=== PATIENT | female | born 1960 | race Caucasian/White ===

== ENCOUNTER → 2022-05-03 | Outpatient (CLI) | payer BC ==
--- NOTE | 2022-05-03 11:19 | XR ---
EXAMINATION TYPE: XR foot limited LT DATE OF EXAM: 05/03/2022 10:17 AM INDICATION: Patient age:Female; 61 years old; Reason for study: [id number]; COMPARISON: None TECHNIQUE: The left foot was examined in the AP, and lateral projections. FINDINGS: No evidence of any acute osseous pathology. No evidence of soft tissue swelling. Joints are preserve d. Calcaneal plantar spurring is present. IMPRESSION: No evidence of acute fracture.
== END | disposition home or self-care (01) ==
LOC: RADXRMAIN 10:04
PROVIDERS: ATTEND Family Medicine
DX: M79.672 Pain in left foot (principal)

== ENCOUNTER → 2022-05-03 | Outpatient (CLI) | payer BC ==
[2022-05-03 14:04] LABS: Basophils # (A) 0.06 X 10*3/uL (0.00-0.10); Basophils % (A) 1.1 %; Eosinophils % (A) 3.8 %; HCT 44.3 % (37.2-46.3); HGB 14.4 g/dL (12.0-15.0); Immature Grans, Automated 0.2 %; Lymphocytes # (A) 1.97 X 10*3/uL (0.90-5.00); Lymphocytes % (A) 37.7 %; MCH 29.3 pg (27.0-32.0); MCHC 32.5 g/dL (32.0-37.0); MCV 90.2 fL (80.0-97.0); Mean Platelet Volume 10.8 fL (9.5-12.2); Monocytes # (A) 0.37 X 10*3/uL (0.20-1.00); Monocytes % (A) 7.1 %; NRBC Per 100 WBC 0 /100 WBCS (0.0-0.0); Neutrophils # (A) 2.62 X 10*3/uL (1.80-7.70); Neutrophils % (A) 50.1 %; Platelet Count 247 X 10*3/uL (140-440); RBC 4.91 X 10*6/uL (4.10-5.20); RDW 14.4 % (11.5-14.5); WBC 5.23 X 10*3/uL (4.50-10.00)
[2022-05-03 14:29] LABS: ALT 20 U/L (8-44); AST 16 U/L (13-35); African American GFR (CKD) 114.7 (60.0-200.0); Albumin 4.8 g/dL (3.8-4.9); Alkaline Phosphatase 71 U/L (41-126); BUN/Creat Ratio 18.05 Ratio (12.00-20.00); Blood Urea Nitrogen 11.1 mg/dL (9.0-27.0); Calcium 10.3 mg/dL (8.7-10.3); Carbon Dioxide 25.2 mmol/L (20.0-27.5); Chloride 107 mmol/L (96-109); Chol/HDL Ratio 5.47 Ratio; Globulin 2.5 g/dL (1.6-3.3); Glucose 82 mg/dL (70-110); LDL Cholesterol,Calculated 160.3 mg/dL (0.0-131.0); Potassium 4.5 mmol/L (3.5-5.5); Sodium 142 mmol/L (135-145); Total Protein 7.3 g/dL (6.2-8.2); Uric Acid 4.7 mg/dL (2.9-7.7); VLDL Calculation 15.38 mg/dL (5.00-40.00)
== END | disposition home or self-care (01) ==
LOC: LABWHC1 09:19
PROVIDERS: ATTEND Family Medicine
DX: Z00.00 Encounter for general adult medical examination without abnormal findings (principal); M25.572 Pain in left ankle and joints of left foot; Z68.23 Body mass index [BMI] 23.0-23.9, adult
CPT/HCPCS: 36415; 80053; 80061; 84439; 84443; 84550; 85025

== ENCOUNTER → 2022-05-14 | Outpatient (CLI) | payer BC ==
--- NOTE | 2022-05-15 19:30 | MM ---
Reason for Exam: Screening (asymptomatic). Last mammogram was performed 6 year(s) and 8 month(s) ago. Patient History: Menarche at age 19. First Full-Term at age 32. Late child-bearing (after 30). Postmenopausal. 2000, Cyst Aspiration on the Left side. Mother had breast cancer, age 52. Risk Values: Nany 5 year model risk: 2.6%. NCI Lifetime model risk: 13.4%. Prior Study Comparison: 02/02/2012 Bilateral MG screening mammo w CAD - 2, [facility]. 03/16/2012 Screening Mammogram, [facility]. 09/20/2015 Bilateral Screening Mammogram, [facility]. Tissue Density: The breast tissue is heterogeneously dense. This may lower the sensitivity of mammography. Findings: Analyzed By CAD. There is no suspicious group of microcalcifications or new suspicious mass in either breast. Overall Assessment: Negative, BI-RAD 1 Management: Screening Mammogram of both breasts in 1 year. 1. Patient should continue monthly self breast exams. 2. A clinical breast exam by your physician is recommended on an annual basis. 3. This exam should not preclude additional follow-up of suspicious palpable abnormalities. Electronically signed and approved by: Olga Dodd M.D. Radiologist
== END | disposition home or self-care (01) ==
LOC: RADMAMWWP 09:36
PROVIDERS: ATTEND Family Medicine
DX: Z12.31 Encounter for screening mammogram for malignant neoplasm of breast (principal); Z78.0 Asymptomatic menopausal state; Z80.3 Family history of malignant neoplasm of breast
CPT/HCPCS: 77063; 77067

== ENCOUNTER → 2023-05-19 | Outpatient (CLI) | payer BC ==
--- NOTE | 2023-05-20 08:15 | MM ---
Reason for Exam: Screening (asymptomatic). Last screening mammogram was performed 12 month(s) ago. Patient History: Menarche at age 19. First Full-Term at age 32. Late child-bearing (after 30). Postmenopausal. Patient used Hormonal Contraceptives for 2 years. 2000, Cyst Aspiration on the Left side. Mother had breast cancer, age 52. Risk Values: Nany 5 year model risk: 2.6%. NCI Lifetime model risk: 13.1%. Prior Study Comparison: 03/16/2012 Screening Mammogram, [facility]. 09/20/2015 Bilateral Screening Mammogram, [facility]. 05/14/2022 Bilateral MG 3D screening mammo w/cad, [facility]. Tissue Density: The breast tissue is heterogeneously dense. This may lower the sensitivity of mammography. Findings: Analyzed By CAD. There is no suspicious group of microcalcifications or new suspicious mass in either breast. Overall Assessment: Negative, BI-RAD 1 Management: Screening Mammogram of both breasts in 1 year. A clinical breast exam by your physician is recommended on an annual basis and results should be correlated with mammographic findings. Note on Nany scores and lifetime risk: 1. A Nany score greater than 3% is considered moderate risk. If this is the case, consider specialist referral to assess eligibility for a risk reducing agent. If overall lifetime risk for the development of breast cancer is 20% or higher, the patient may qualify for future screening with alternating mammogram and breast MRI. Electronically signed and approved by: Ralf Jules D.O.
== END | disposition home or self-care (01) ==
LOC: RADMAMWWP 11:45
PROVIDERS: ATTEND Family Medicine
DX: Z12.31 Encounter for screening mammogram for malignant neoplasm of breast (principal); Z80.3 Family history of malignant neoplasm of breast; Z78.0 Asymptomatic menopausal state
CPT/HCPCS: 77063; 77067

== ENCOUNTER → 2023-06-27 | Outpatient (CLI) | payer BC ==
[2023-06-27 21:47] LABS: T4, Free (Free Thyroxine) 1.5 ng/dL (0.80-1.80)
== END | disposition home or self-care (01) ==
LOC: LABWHC1 12:47
PROVIDERS: ATTEND Otolaryngology
DX: E04.1 Nontoxic single thyroid nodule (principal)
CPT/HCPCS: 36415; 84439; 84443; 86376

== ENCOUNTER → 2023-08-19 | Outpatient (CLI) | payer BC ==
--- NOTE | 2023-08-19 10:39 | CT ---
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 TECHNIQUE: Contiguous axial scanning of the soft tissues of the neck performed without and with IV Co ntrast, patient injected with 100ml mL of Isovue 300. Coronal and sagittal reconstructions performed. CT DLP: 697.8 mGycm Automated exposure control for dose reduction was used. FINDINGS: Multiple nodules of the thyroid gland, largest measuring 1.5 cm right thyroid lobe and 9 mm thyroid i sthmus. Please refer to recent thyroid ultrasound for complete details and recommendations. Visualized intracranial structures, orbits and globes, paranasal sinuses, mastoid air cells appear cl ear. Nasopharynx is clear. Multiple punctate calcifications in the region of the palatine tonsils which are moderately hypertrop hied. Calcifications measuring up to 4 mm suggest sequela of prior infection. Mild bilateral inguinal tonsillar hypertrophy. Oropharynx otherwise clear. Epiglottis and prevertebral soft tissue satisfactory. Glottic and subglottic structures as well as the tracheal column and visualized upper lungs are clear . The thyroid glands are satisfactory. Parotid glands are mildly atrophic. A few scattered prominent lymph nodes measuring up to 1.0 cm in the upper neck. No cervical lymphaden opathy by size criteria. Bones: Scattered mild degenerative disc disease mid to lower cervical spine. IMPRESSION: 1. A FEW NODULES IN THE THYROID GLAND. PLEASE REFER TO THE RECENT 06/27/2023 THYROID ULTRASOUND REPORT FOR FURTHER DETAILS AND RECOMMENDATION. 2. MODERATE BILATERAL PALATINE TONSILLAR HYPERTROPHY WITH PUNCTATE CALCIFICATIONS MEASURING UP TO 4 M M SUGGESTING SEQUELA OF PRIOR INFECTION. 3. MILDLY ATROPHIC PAROTID GLANDS. 4. OTHERWISE, NO SPECIFIC ABNORMALITY SEEN.
== END | disposition home or self-care (01) ==
LOC: RADCTMAIN 08:18
PROVIDERS: ATTEND Otolaryngology
DX: Q89.2 Congenital malformations of other endocrine glands (principal); E04.2 Nontoxic multinodular goiter; J35.1 Hypertrophy of tonsils; K11.0 Atrophy of salivary gland
CPT/HCPCS: 70492; Q9967

== ENCOUNTER → 2023-09-11 | Outpatient (CLI) | payer BC ==
--- NOTE | 2023-09-11 08:17 | MM ---
Reason for Exam: Clinical finding. Last screening mammogram was performed 4 month(s) ago. Patient History: Menarche at age 19. First Full-Term at age 32. Late child-bearing (after 30). Postmenopausal. Patient used Hormonal Contraceptives for 2 years. 1999, Cyst Aspiration on the Left side. Mother had breast cancer, age 52. Risk Values: Nany 5 year model risk: 2.6%. NCI Lifetime model risk: 13.1%. Tissue Density: The breast tissue is heterogeneously dense. This may lower the sensitivity of mammography. Findings: Analyzed By CAD. No evidence for mass or distortion. No suspicious calcifications. Overall Assessment: Negative, BI-RAD 1 Management: Screening Mammogram of both breasts in 1 year. . Results were given to the patient verbally at the time of exam. Patient should continue monthly self-breast exams. A clinical breast exam by your physician is recommended on an annual basis. This exam should not preclude additional follow-up of suspicious palpable abnormalities. Note on Nany scores and lifetime risk: 1. A Nany score greater than 3% is considered moderate risk. If this is the case, consider specialist referral to assess eligibility for a risk reducing agent. 2. If overall lifetime risk for the development of breast cancer is 20% or higher, the patient may qualify for future screening with alternating mammogram and breast MRI. Electronically signed and approved by: José Fernandez M.D. Radiologis
== END | disposition home or self-care (01) ==
LOC: RADMAMWWP 07:55
PROVIDERS: ATTEND Family Medicine
DX: N64.4 Mastodynia (principal); R92.333 Mammographic heterogeneous density, bilateral breasts; Z80.3 Family history of malignant neoplasm of breast; Z78.0 Asymptomatic menopausal state
CPT/HCPCS: 77062; 77066

== ENCOUNTER → 2023-10-17 | Outpatient (CLI) | payer BC ==
--- NOTE | 2023-10-17 10:24 | FL ---
EXAMINATION TYPE: FL barium swallow DATE OF EXAM: 10/17/2023 CLINICAL INDICATION: 62-year-old female R13.19, other dysphasia, sensation of a hard lump in the thro at, trouble swallowing. COMPARISON: CT 08/19/2023 Total Fluoroscopy Time: 2 minutes 4 seconds 274.45 mGycm2 DAP 45 images obtained. FINDINGS: The swallowing mechanism is normal. There is slight anterior endplate spondylosis C5-C6 which causes minimal impression onto the back wall of the cervical esophagus but without any significant luminal n arrowing or obstruction. Otherwise, the hypopharyngeal anatomy is preserved. The cervical and thoracic portions have a normal course and caliber. There is mild tertiary peristaltic waves and slight blunting of the secondary stripping waves. This r esults in slight delay in complete clearance of contrast from the esophagus. Mucosa is normal and no persistent filling defect is encountered. No hiatal hernia is present. No gastroesophageal reflux is identified. IMPRESSION: 1. Tiny anterior endplate spurring at C5-C6 minimally impressing onto the back wall of the cervical e sophagus but without any luminal narrowing or obstruction. 2. Mild age-related esophageal dysmotility. 3. Otherwise, unremarkable esophagram.
== END | disposition home or self-care (01) ==
LOC: RADUSWWP 09:06
PROVIDERS: ATTEND Otolaryngology
DX: K22.4 Dyskinesia of esophagus (principal); R13.19 Other dysphagia; R05.9 Cough, unspecified
CPT/HCPCS: 74220

== ENCOUNTER → 2023-10-24 | Outpatient (CLI) | payer BC ==
--- NOTE | 2023-10-24 09:24 | CT ---
EXAMINATION TYPE: CT chest wo/w con DATE OF EXAM: 10/24/2023 COMPARISON: None HISTORY: Chronic cough, pt also states she has spots on her neck, getting a biopsy soon. Observe for any abnormalities CT DLP: 750 mGycm, Automated exposure control for dose reduction was used. CONTRAST: Performed injected with 100 mL of Isovue 300. TECHNIQUE: Axial images were obtained at 5 mm thick sections. Reconstructed images are reviewed on Panève computer in the coronal plane. FINDINGS: There is a 1.2 cm hypodensity within the right lobe thyroid. Thyroid otherwise appears unre markable. No suspicious lung nodules or focal infiltrates are present. No enlarged mediastinal or hilar adenopathy is evident. The ascending aorta diameter at the level o f the main pulmonary artery is 3.2 cm. The main pulmonary artery diameter at the bifurcation is 2.[address] sections are obtained through the upper abdomen. Cholelithiasis. IMPRESSION: 1. No acute CT chest findings. 2. 1.2 cm hypodensity right lobe thyroid. This could be further evaluated with ultrasound.
[2023-10-24 09:34] VITALS: PULSE 97; RESP 18
[2023-10-24 10:27] VITALS: BP 134/80
== END | disposition home or self-care (01) ==
LOC: RADCTMAIN 08:26
PROVIDERS: ATTEND Otolaryngology
DX: E07.89 Other specified disorders of thyroid (principal); R05.3 Chronic cough; R21 Rash and other nonspecific skin eruption
CPT/HCPCS: 71270; Q9967

== ENCOUNTER 2023-11-11 08:07 | Day surgery (SDC) | payer BC ==
[2023-11-11 14:03] VITALS: RESP 16; TEMP 97.8
--- NOTE | 2023-11-11 14:38 | US ---
EXAMINATION TYPE: US FNA thyroid first lesion DATE OF EXAM: 11/11/2023 2:25 PM CLINICAL INDICATION:Female, 63 years old with history of E04.2 NONTOXIC MULTINODULAR GOITER E04.1; , thyroid nodule. COMPARISON: 08/19/2023 ATTENDING: Dr. Curtis Everett PROCEDURE: Informed consent was obtained. The risks and benefits of the procedure were discussed with the patien t. The site was marked. Timeout procedure was performed Ultrasound imaging of the thyroid demonstrates right neck The patient was prepped, draped in the usual sterile fashion, and locally anesthetized with 1% lidoca ine. Two aspirations were then performed with a 25 gauge needle. Samples were sent to the pathology department for further analysis. Patient tolerated the procedure without incident and was sent home in stable condition. IMPRESSION: Successful ultrasound right thyroid cyst aspiration.
[2023-11-11 15:11] VITALS: BP 165/91; PULSE 80
== END 2023-11-11 14:55 | disposition home or self-care (01) ==
LOC: RADPROMAIN 08:07
PROVIDERS: ATTEND Internal Medicine Endocrinology, Diabetes & Metabolism
DX: E04.1 Nontoxic single thyroid nodule (principal); E04.2 Nontoxic multinodular goiter
CPT/HCPCS: 10005; 88173; 88305

== ENCOUNTER → 2023-11-11 | Outpatient (CLI) | payer BC | END | disposition home or self-care (01) | LOC: LABWHC1 12:26 | PROVIDERS: ATTEND Otolaryngology | DX: M47.812 Spondylosis without myelopathy or radiculopathy, cervical region (principal); K11.7 Disturbances of salivary secretion | CPT/HCPCS: 36415; 85652; 86038; 86235; 86431 ==

== ENCOUNTER 2023-11-20 10:44 | Day surgery (SDC) | payer BC ==
[~2023-11-20 10:44] MED LIST: LACTATED RINGERS 1,000 ML IV SCH
[2023-11-20] MEDS: LACTATED RINGERS 1,000 ML IV SCH (11:14)
[2023-11-20] MEDS: ATROPINE SULFATE 0.4 MG/ML 1 ML VIAL IM ONE (11:18)
[2023-11-20] MEDS ORDERED: PROPOFOL 10 MG/ML 20 ML VIAL IV ONE (11:35)
[2023-11-20] MEDS ORDERED: LIDOCAINE 1% INJ 10MG/ML (20 ML MDV) ONE (11:35)
[2023-11-20] MEDS ORDERED: fentaNYL (PF) 50 MCG/ML 2 ML AMP ONE (11:35)
[2023-11-20] MEDS ORDERED: MIDAZOLAM 2 MG/2 ML VIAL ONE (11:35)
[2023-11-20 11:39] VITALS: TEMP 98.8
[2023-11-20] MEDS: ACETAMINOPHEN TAB 500 MG TAB ONE (12:23)
--- NOTE | 2023-11-20 12:28 | PCN ---
PROCEDURE NOTE PROCEDURES PERFORMED: Bronchoscopy, airway examination, and therapeutic lavage BAL right middle lobe, endobronchial biopsy on the oblique esteban, the right upper lobe from the bronchus intermedius. PREOPERATIVE DIAGNOSIS: Chronic cough. POSTOPERATIVE DIAGNOSIS: Chronic cough. SHEEP CLIPPER: Dr. Godwin. WHEEL BRAIDER: First assistant professor surgical technology was Dr. Cait Norris. ANESTHESIA: Provided general anesthesia. We did the procedure in room #2 [facility]. There was informed consent and universal timeout. DESCRIPTION OF PROCEDURE: After the patient was adequately sedated, the bronchoscope was placed through the left nostril, into the nasopharynx. The bronchoscope was then pushed through the nasopharynx into the oropharynx, and then into the hypopharynx. The hypopharynx was identified, and evaluated. It was topicalized. Anterior commissure, true cords, false cords, arytenoids, piriform sinuses, right and left, vallecula, epiglottis, all appeared normal. After topicalization, the bronchoscope was pushed through the glottic opening into the trachea. Trachea appeared relatively normal. There were minimal secretions noted in the distal trachea. Tracheal esteban was sharp. The right upper lobe and its 3 segments, right middle lobe and its 2 segments, the right lower lobe and its 5 segments, the left upper lobe proper and its 2 segments, lingula and its 2 segments, the left lower lobe and its 4 segments were all evaluated. There was diffuse dtao-ag-wrabozhj bronchitis throughout. There was some hyperemia and erythema of the airways. There was minimal mucosal friability. There was no dominant mass or tumor noted. There were minimal secretions. Next, the bronchoscope was positioned into the right middle lobe. A formal BAL took place. 30 mL of fluid was recovered. Next, there were multiple endobronchial biopsies of the oblique esteban the right upper lobe from the bronchus intermedius. Good samples were obtained. The BAL and biopsy to be sent to the laboratory for analysis. There was no immediate complication. There was no significant bleeding. The patient tolerated the procedure well. The patient will be sent over to the recovery area. I did have the opportunity to speak to the patient's . MMODL / IJN: [id number] /
[2023-11-20 13:15] VITALS: BP 147/67; PULSE 89; RESP 18
[2023-11-20 18:58] LABS: Appearance,BF Clear (Clear)
== END 2023-11-20 13:05 | disposition home or self-care (01) ==
LOC: ORWHC2ENDO 10:44
PROVIDERS: ATTEND Internal Medicine Critical Care Medicine
DX: J40 Bronchitis, not specified as acute or chronic (principal); Z91.041 Radiographic dye allergy status; Z88.1 Allergy status to other antibiotic agents
CPT/HCPCS: 88108; 88305; 89050; 87070; 87205; 87116; 87102; 87206; 31625; 31624; J2250; J0461; J2001; J3010; J2704

== ENCOUNTER → 2024-02-20 | Outpatient (CLI) | payer BC ==
--- NOTE | 2024-02-20 12:59 | US ---
EXAMINATION TYPE: US thyroid st tissue head/neck DATE OF EXAM: 02/20/2024 COMPARISON: US 06/27/23 CLINICAL INDICATION: Female, 63 years old with history of E04.1 NONTOXIC SINGLE THYROID NODULE; F/U GLAND SIZE: Right Lobe: 4.6x1.3x1.8 cm Overall Parenchyma: homogeneous Left Lobe: 3.8x1.9x1.7 cm Overall Parenchyma: homogeneous Isthmus Thickness: 0.3 cm NODULES RIGHT: # of nodules measured on right: 1 1. 0.7 X 0.4 x 0.5 cm, upper mid, cystic or almost completely cystic, anechoic nodule, which is wid er than tall, with ill-defined margins, with echogenic foci. Prior size: 2.1 x 1.2 x 0.6 cm Aspirated on 11/11/23 LEFT: # of nodules measured on left: 2 1. 1.0 X 0.8 x 1.1 cm, lower mid, solid or almost completely solid, hypoechoic nodule, which is wid er than tall, with ill-defined margins, without echogenic foci. Prior size: 1.1 x 1.0 x 0.7 cm 2. 0.6 X 0.6 x 0.4 cm, lower mid, solid or almost completely solid, hypoechoic nodule, which is wi lulu than tall, with ill-defined margins, without echogenic foci. Prior size: 0.6 x 0.4 x 0.4 cm ISTHMUS: # of nodules measured in the isthmus: 2 1. 1.3 X 0.6 x 1.6 cm solid or almost completely solid, hypoechoic nodule, which is wider than tall , with smooth margins, without echogenic foci. TR 4 Prior size: 1.4 x 1.2 x 0.6 cm 1. 0.9 X 0.4 x 1.1 cm cystic or almost completely cystic, anechoic nodule, which is wider than tall , with smooth margins, with echogenic foci. Prior size: 1.2 x 1.2 x 0.6 cm several small subcentimeter nodules scattered throughout bilaterally Bilateral neck scanned, no evidence of lymphadenopathy. IMPRESSION: Moderately suspicious nodule at the isthmus of the thyroid. Follow-up exam in one year is recommended 2017 ACR TI-RADS LEVEL: TR-RADS 4 - Moderately Suspicious: Follow if > 1 cm, FNA if > 1.5 cm *Highest TI-RADS level nodule reported
== END | disposition home or self-care (01) ==
LOC: RADUSWWP 10:29
PROVIDERS: ATTEND Internal Medicine Endocrinology, Diabetes & Metabolism
DX: E04.2 Nontoxic multinodular goiter (principal)
CPT/HCPCS: 76536

== ENCOUNTER 2024-02-29 14:05 | Emergency (ER) | payer BC ==
[2024-02-29 14:58] VITALS: RESP 16
--- NOTE | 2024-02-29 15:12 | ED ---
General Adult HPI - General Chief complaint: Eye Problems Stated complaint: Vision loss Time Seen by Provider: 02/29/24 14:38 Source: patient, family, RN notes reviewed Mode of arrival: ambulatory Limitations: no limitations - History of Present Illness Initial comments: Patient is a 63-year-old female present to the emergency department with concerns with visual changes of the right eye. Patient states symptoms started around 1.5 hours ago. Patient only has mild discomfort. Patient states there has been some swelling and floaters. Patient states it feels like she is looking through a large amount of gravel. Patient feels like she has lost 80 to 90% of the vision of her right eye. Patient does have history of retinal detachment on the left. Patient has history of retinal tears on the right. Patient has history of hemorrhage on the right as well. Patient is only mildly sensitive to light. No recent trauma. - Related Data Home Medications Medication Instructions Recorded Confirmed Calcium Carbonate/Vitamin D3 1,200 mg PO DAILY 05/15/15 11/20/23 [Calcium 600 + Vit D Tablet] Fish Oil/Dha/Epa [Fish Oil 1,200 1,400 units PO DAILY 05/15/15 11/20/23 mg Fish Oil] Vitamin E (Dl,Tocopheryl Acet) 400 unit PO DAILY 05/15/15 11/20/23 [Vitamin E] Alendronate Sodium [Fosamax] 5 mg PO DAILY 10/24/23 11/20/23 Pilocarpine [Salagen] 5 mg PO HS 10/24/23 11/20/23 Ibuprofen [Motrin] 800 mg PO Q8H PRN 11/18/23 11/20/23 Montelukast [Singulair] 10 mg PO DAILY 11/18/23 11/20/23 Trelegy(Unk) 1 inh INHALATION DAILY 11/18/23 11/20/23 prednisoLONE ACETATE 1% OPHTH 1 drp RIGHT EYE QID 11/18/23 11/20/23 [Pred Forte 1%] Allergies Allergy/AdvReac Type Severity Reaction Status Date / Time cefuroxime axetil Allergy Itching Verified 02/29/24 14:32 [From Ceftin] Iodinated Contrast Media Allergy Anaphylaxis Verified 02/29/24 14:32 [Iodinated Contrast Media - IV Dye] Review of Systems ROS Statement: Those systems with pertinent positive or pertinent negative responses have been documented in the HPI. ROS Other: All systems not noted in ROS Statement are negative. Constitutional: Denies: fever Eyes: Reports: as per HPI, vision change ENT: Denies: ear pain Respiratory: Denies: dyspnea Cardiovascular: Denies: chest pain Endocrine: Denies: fatigue Gastrointestinal: Denies: abdominal pain Past Medical History Past Medical History: Mitral Valve Prolapse (MVP), Pneumonia Additional Past Medical History / Comment(s): Poor circulation in lower extremities, retinal detachement surgery on lft, rt eye two tears 1 month apart they feel it's autoimmune issue attacking muscles in eye, persistant cough, frequent bronchitis and pneumonia entire life constant ringing in gladys ears,with some hearing loss, History of Any Multi-Drug Resistant Organisms: None Reported Past Surgical History: Appendectomy, Section, Tubal Ligation Additional Past Surgical History / Comment(s): D &C, laparoscopy for ovarian cyst, see above for eye issues and surgeries Past Anesthesia/Blood Transfusion Reactions: No Reported Reaction, Postoperative Nausea & Vomiting (PONV) Additional Past Anesthesia/Blood Transfusion Reaction / Comment(s): shakiness with coming out of anesthesia Past Psychological History: No Psychological Hx Reported Smoking Status: Never smoker Past Alcohol Use History: None Reported Past Drug Use History: None Reported - Past Family History Son(s) Family Medical History: Cancer Additional Family Medical History / Comment(s): stage 4 hodgkins lymphoma Mother Family Medical History: Cancer General Exam Limitations: no limitations General appearance: alert Head exam: Present: atraumatic Eye exam: Present: normal appearance, PERRL, EOMI, other (Funduscopic exam without uptake. Posterior exam with haziness appearance of the retina.) Expanded Eyelids: Normal Inspection: Bilateral Pupils: Regular, Round: Bilateral Sclera/Conjunctival: Normal Inspection: Bilateral IOP (R) in mmH ENT exam: Present: normal oropharynx Respiratory exam: Present: normal lung sounds bilaterally Cardiovascular Exam: Present: regular rate, normal rhythm GI/Abdominal exam: Present: soft. Absent: tenderness Extremities exam: Present: normal inspection Neurological exam: Present: alert, CN II-XII intact Psychiatric exam: Present: normal affect, normal mood Skin exam: Present: normal color Course Vital Signs 02/29/24 14:29 Temperature 98.5 F Pulse Rate 99 Respiratory 16 Rate Blood Pressure 167/88 O2 Sat by Pulse 98 Oximetry - Reevaluation(s) Reevaluation #1: 02/29/24 15:11 Attempting to get a hold of patient's dba developer, Dr. Flako Ricci Medical Decision Making - Medical Decision Making Was pt. sent in by a medical professional or institution (, PA, ROOM SERVICE CLERK, urgent care, hospital, or [place] health care facility...) When possible be specific @ -No Did you speak to anyone other than the patient for history (EMS, parent, family, police, friend...)? What history was obtained from this source @ - is present and helps confirm onset of symptoms Did you review nursing and triage notes (agree or disagree)? Why? @ -I reviewed and agree with nursing and triage notes Were old charts reviewed (outside hosp., previous admission, EMS record, old EKG, old radiological studies, urgent care reports/EKG's, [place] health care facility records)? Report findings @ -No old charts were reviewed Differential Diagnosis (chest pain, altered mental status, abdominal pain women, abdominal pain men, vaginal bleeding, weakness, fever, dyspnea, syncope, headache, dizziness, GI bleed, back pain, seizure, CVA, palpatations, mental health, musculoskeletal)? @ -Differential Headache: Migraine, tension, cluster, carbon monoxide, central venous thrombosis, pension karma temporal arteritis, acute closure glaucoma, intercranial hemorrhage, mastoiditis, sinusitis, head injury, this is not meant to be an all-inclusive list. EKG interpreted by me (3pts min.). @ -As above X-rays interpreted by me (1pt min.). @ -None done CT interpreted by me (1pt min.). @ -None done U/S interpreted by me (1pt. min.). @ -None done What testing was considered but not performed or refused? (CT, X-rays, U/S, labs)? Why? @ -None What meds were considered but not given or refused? Why? @ -None Did you discuss the management of the patient with other professionals (professionals i.e. , [employer], ROOM SERVICE CLERK, lab, RT, psych nurse, social science research assistant, siderographist, teacher, safety patrol officer, case management assistant)? Give summary @ -Case discussed with Dr. Renee who does want patient to go to [facility] and he will working coordination with ophthalmology there. Was smoking cessation discussed for >3mins.? @ -No Was critical care preformed (if so, how long)? @ -No Were there social determinants of health that impacted care today? How? (Homelessness, low income, unemployed, alcoholism, drug addiction, transportation, low edu. Level, literacy, decrease access to med. care, assisted, rehab)? @ -No Was there de-escalation of care discussed even if they declined (Discuss DNR or withdrawal of care, Hospice)? DNR status @ -No What co-morbidities impacted this encounter? (DM, HTN, Smoking, COPD, CAD, Cancer, CVA, ARF, Chemo, Hep., AIDS, mental health diagnosis, sleep apnea, morbid obesity)? @ -None Was patient admitted / discharged? Hospital course, mention meds given and route, prescriptions, significant lab abnormalities, going to OR and other pertinent info. @ -Patient and family updated on results and plan. Patient has acute visual loss right eye with vision 20/200 on the right eye. Patient will go to [facility] for ophthalmology care as we do not have ophthalmology today. There is concern for vitreous hemorrhage versus other. Family is comfortable and would like to drive patient immediately there. They were advised to stay n.p.o. and to go there immediately to the emergency department. Emergency department has been paged. Undiagnosed new problem with uncertain prognosis? @ -No Drug Therapy requiring intensive monitoring for toxicity (Heparin, Nitro, Insulin, Cardizem)? @ -No Were any procedures done? @ -No Diagnosis/symptom? @ -Visual loss Acute, or Chronic, or Acute on Chronic? @ -Acute Uncomplicated (without systemic symptoms) or Complicated (systemic symptoms)? @ -Default Side effects of treatment? @ -No Exacerbation, Progression, or Severe Exacerbation? @ -No Poses a threat to life or bodily function? How? (Chest pain, USA, IA, pneumonia, PE, COPD, DKA, ARF, appy, cholecystitis, CVA, Diverticulitis, Homicidal, Suicidal, threat to staff... and all critical care pts) @ -Threat to permanent visual loss Case also discussed with Juan at [facility] as well as Dr. Rich as well who will accept for ophthalmology. Juan also states Dr. Hathaway will accept for ER. Disposition Clinical Impression: Visual loss Disposition: OTHER INSTITUTION NOT DEFINED Additional Instructions: Proceed immediately to [facility] emergency department. Nothing to eat or drink. Is patient prescribed a controlled substance at d/c from ED?: No Referrals: Ale Church DO [Primary Care Provider] - 1-2 days Time of Disposition: 15:24 - Out of Hospital Transfer - Req. Specs Out of Hospital Transfer - Requested Specifics: Other Emergency Center
[2024-02-29] MEDS ORDERED: PROPARACAINE 0.5% OPHTH DROPS 15 ML BTL RIGHT EYE STA (15:25)
[2024-02-29 16:30] VITALS: BP 159/86; PULSE 97; TEMP 98.4
== END 2024-02-29 16:07 | disposition other institution (70) ==
LOC: EC 14:05
DX: H54.7 Unspecified visual loss (principal); Z91.041 Radiographic dye allergy status; Z88.8 Allergy status to other drugs, medicaments and biological substances
CPT/HCPCS: 99284

== ENCOUNTER → 2024-08-06 | Outpatient (CLI) | payer BC ==
[2024-08-06 15:36] LABS: T4, Free (Free Thyroxine) 1.49 ng/dL (0.80-1.80)
--- NOTE | 2024-08-07 20:22 | US ---
EXAMINATION TYPE: US thyroid st tissue head/neck DATE OF EXAM: 08/06/2024 COMPARISON: NONE CLINICAL INDICATION: Female, 63 years old with history of E04.2 NONTOXIC MULTINODULAR GOITER; f/u, vaz s had bx on the right previously, not on thyroid medication, constant cough, feel like rocks in her t hroat TECHNIQUE: Grayscale and color Doppler imaging of the thyroid gland. FINDINGS: GLAND SIZE: Right Lobe: 4.4 x 2.0 x 1.2cm Overall Parenchyma: heterogeneous Left Lobe: 4.1 x 1.7 x 1.7 cm Overall Parenchyma: heterogeneous Isthmus Thickness: 0.4 cm NODULES RIGHT: # of nodules measured on right: multiple, measured largest 1. 0.7 X 0.6 x 0.5 cm, mid , mixed cystic and solid, hypoechoic nodule, which is wider than tall, w ith smooth margins, with echogenic foci. Prior size: 0.7 x 0.4 x 0.5 cm TR4 LEFT: # of nodules measured on left: multiple, measured largest 1. 1.2 X 1.1 x 0.8 cm, upper , solid or almost completely solid, hypoechoic nodule, which is wider t felder tall, with smooth margins, without echogenic foci. Prior size: 1.0 x 1.1 x 0.8 cm TR3 ISTHMUS: # of nodules measured in the isthmus: multiple, measured largest 1. 1.1 X 1.3 x 0.6 cm solid or almost completely solid, hypoechoic nodule, which is wider than tall , with smooth margins, without echogenic foci. Prior size: 1.3 x 1.6 x 0.6 cm TR3 Bilateral neck scanned, no evidence of lymphadenopathy. IMPRESSION: Moderately Suspicious: FNA if ? 1.5 cm; Follow if ? 1 cm at 1, 2, 3, and 5 y 2017 ACR TI-RADS LEVEL: TR4 *Highest TI-RADS level nodule reported [email or web address] [facility], , 08/07/2024 8:20 PM
== END | disposition home or self-care (01) ==
LOC: RADUSWWP 09:07
PROVIDERS: ATTEND Internal Medicine Endocrinology, Diabetes & Metabolism
DX: E04.2 Nontoxic multinodular goiter (principal)
CPT/HCPCS: 76536; 84439; 84443